=== PATIENT | female | born 1990 | race Caucasian/White ===

== ENCOUNTER 2017-01-05 10:32 | Emergency (ER) | payer SELFPAY ==
[~2017-01-05] VITALS: Ht 160 cm; Wt 83.7 kg
[2017-01-05] MEDS ORDERED: CLEOCIN300 MG PO ×2 (12:27→12:34)
[2017-01-05] MEDS ORDERED: NORCO 5/3251 TABLET PO (12:27)
[2017-01-05] MEDS ORDERED: AUGMENTIN875 MG PO (12:31)
[2017-01-05 12:33] VITALS: BP 167/94
== END 2017-01-05 12:34 | disposition home or self-care (01) ==
LOC: EME 10:32
DX: L03.211 Cellulitis of face (principal); J01.90 Acute sinusitis, unspecified; K08.89 Other specified disorders of teeth and supporting structures
CPT/HCPCS: 70486; 99281; 99284

== ENCOUNTER 2017-01-07 21:09 | Emergency (ER) | payer SELFPAY ==
[~2017-01-07] VITALS: Ht 160 cm; Wt 83.1 kg
[~2017-01-07 21:09] MED LIST: AUGMENTIN875 MG PO; CLEOCIN300 MG PO; NORCO 5/3251 TABLET PO
[2017-01-08 00:08] LABS: MCH 30.8 PG (29.0-34.0); MCHC 33.8 G/DL (30.0-36.0); MCV 91.1 FL (83-99); PLATELET COUNT 354 K/uL (156-360); RBC DIS.WIDTH-CV 11.9 % (11.8-14.6); RBC DIS.WIDTH-SD 39.7 % (39-53); RED BLOOD COUNT 4.39 M/uL (3.80-5.20); WHITE BLOOD COUNT 14.1 K/uL (4.1-10.2)
[2017-01-08 00:23] LABS: CHLORIDE 101 mEq/L (99-109); POTASSIUM 3.2 mEq/L (3.7-5.4)
[2017-01-08 00:24] LABS: SODIUM 141 mEq/L (136-147)
[2017-01-08 00:25] LABS: GLUCOSE 110 mg/dL (70-99)
[2017-01-08 00:27] LABS: ANION GAP 15 MEQ/L (2-14)
[2017-01-08 00:29] LABS: GFR ESTIMATE (CALCULATED) > 59 mL/min/
[2017-01-08 00:30] LABS: UREA NITROGEN (BUN) 12 mg/dL (9-23)
[2017-01-08 00:41] LABS: QUANTITATIVE HCG < 4.0 MIU/ML
[2017-01-08 01:45] VITALS: BP 180/102
== END 2017-01-08 01:49 | disposition home or self-care (01) ==
LOC: EME 21:09
PROVIDERS: Physician Assistant
DX: K04.7 Periapical abscess without sinus (principal); R22.0 Localized swelling, mass and lump, head; I10 Essential (primary) hypertension; R42 Dizziness and giddiness
CPT/HCPCS: 70487; 80048; 84702; 85027; 99281; 99284; J1885; J7040